=== PATIENT | male | born 1955 | race Caucasian/White ===

== ENCOUNTER 2021-03-26 18:20 | Inpatient (IN) | payer MEDICARE, MEDICAID ==
[~2021-03-26] VITALS: Ht 185.4 cm; Wt 82.3 kg
[~2021-03-26 18:20] MED LIST: ALDACTONE25 MG PO; ASPIRIN CHEWABL81 MG PO; CARVEDILOL25 MG PO; CARVEDILOL6.25 MG PO; CORDARONE 200M200 MG PO; COREG 12.5MG12.5 MG PO; COREG 25MG TAB25 MG PO; ELIQUIS5 MG PO; FLOMAX0.4 MG PO; IMDUR ER TAB 3030 MG PO; IMDUR ER TAB 6060 MG PO; ISOSORBIDE DINI30 MG PO; KEPPRA 500 MG500 MG PO; KEPPRA500 MG PO; LEVAQUIN750 MG PO; LIPITOR40 MG PO; LISINOPRIL2.5 MG PO; NEURONTIN600 MG PO; NITROGLYCERIN0.4 MG SL; PRAVACHOL20 MG PO; PROAIR HFA8.5 GM INH; PROSCAR5 MG PO; RANOLAZINE ER1000 MG PO; SYMBICORT 16010.2 GM INH; TYLENOL WITH C1 EACH PO; ZANTAC300 MG PO
[2021-03-27 07:09] LABS: HEMOGLOBIN 15.4 gm/dl (14.0-17.5); RED BLOOD COUNT 4.75 M/UL (4.20-5.50); WHITE BLOOD COUNT 8.8 K/UL (4.5-11.0)
[2021-03-27 07:30] LABS: BUN/CREATININE RATIO 13 (0-10)
[2021-03-27] MEDS ORDERED: PROTONIX 40 MG40 M1 PO (09:57)
[2021-03-28 03:39] LABS: HEMOGLOBIN 13.6 gm/dl (14.0-17.5); RED BLOOD COUNT 4.24 M/UL (4.20-5.50); WHITE BLOOD COUNT 9.6 K/UL (4.5-11.0)
[2021-03-28 04:00] LABS: BUN/CREATININE RATIO 18 (0-10)
--- NOTE | 2021-03-28 15:59 | NUR ---
PT 02 86 ON ROOM AIR
[2021-03-30 03:44] LABS: HEMOGLOBIN 12.8 gm/dl (14.0-17.5); RED BLOOD COUNT 3.99 M/UL (4.20-5.50)
[2021-03-30 03:50] LABS: WHITE BLOOD COUNT 6.5 K/UL (4.5-11.0)
[2021-03-30] MEDS ORDERED: AMIODARONE HCL200 MG PO (12:03)
[2021-03-30] MEDS ORDERED: ISOSORBIDE MONO30 MG PO (12:03)
[2021-03-30] MEDS ORDERED: CARVEDILOL3.125 MG PO (12:03)
[2021-03-30] MEDS ORDERED: CLOPIDOGREL75 MG PO (12:03)
[2021-03-30] MEDS ORDERED: LISINOPRIL2.5 MG PO (12:10)
--- NOTE | 2021-03-30 20:51 | NUR ---
1450 - CALLED DR. DO - INFORMED OF LOW BP AND HR - PT BP MEDS HELD THIS AM AND YESTERDAY - IMDUR, COREG, LISINOPRIL - PT GETTING LOADING DOSE OF AMIODORONE TID - PT DUE TO BE DISCHARGED NOW - DR DO AWARE AND OK WITH CONTINUING DISCHARGE PROCESS HOME WITH HR OF 48 - 52 AND SBP 88-90's. DR DO STATED TO CONTINUE AMIODORONE AND TO NOT HOLD ANY DOSES
== END 2021-03-30 17:00 | disposition home or self-care (01) | DRG 281 ==
LOC: PROG CARE 18:20
PROVIDERS: Internal Medicine; ADMIT Internal Medicine Infectious Disease
PROC: B24BZZZ Ultrasonography of Heart with Aorta (ICD-10-PCS; principal; 2021-03-28)
DX: I48.0 Paroxysmal atrial fibrillation (principal); I21.4 Non-ST elevation (NSTEMI) myocardial infarction; J98.11 Atelectasis; I50.22 Chronic systolic (congestive) heart failure; I69.354 Hemiplegia and hemiparesis following cerebral infarction affecting left non-dominant side; Z20.822 Contact with and (suspected) exposure to COVID-19; K59.00 Constipation, unspecified; I25.5 Ischemic cardiomyopathy; I48.19 Other persistent atrial fibrillation; I11.0 Hypertensive heart disease with heart failure; N40.0 Benign prostatic hyperplasia without lower urinary tract symptoms; E78.5 Hyperlipidemia, unspecified; F17.210 Nicotine dependence, cigarettes, uncomplicated; I25.10 Atherosclerotic heart disease of native coronary artery without angina pectoris; I47.2 Ventricular tachycardia; N28.1 Cyst of kidney, acquired; I95.2 Hypotension due to drugs; T50.995A Adverse effect of other drugs, medicaments and biological substances, initial encounter; Z95.1 Presence of aortocoronary bypass graft; Z79.82 Long term (current) use of aspirin; Z71.6 Tobacco abuse counseling; Z87.442 Personal history of urinary calculi; Z82.49 Family history of ischemic heart disease and other diseases of the circulatory system; Z83.3 Family history of diabetes mellitus; Z82.5 Family history of asthma and other chronic lower respiratory diseases; I25.2 Old myocardial infarction; Z74.01 Bed confinement status
CPT/HCPCS: ECHO; 36415; 71045; 80053; 82550; 82553; 83735; 83880; 84439; 84443; 84484; 85025; 86140; 93005; 93306; 94640; 94760; 97162; J0295; J0456; J0696; J2270; J7030

== ENCOUNTER → 2021-06-20 | Outpatient (CLI) | payer MEDICARE ==
[~2021-06-20] MED LIST changes: +AMIODARONE HCL200 MG PO; +CARVEDILOL3.125 MG PO; +CLOPIDOGREL75 MG PO; +ISOSORBIDE MONO30 MG PO; +PROTONIX 40 MG40 M1 PO
== END ==
LOC: HEART 5 09:41
DX: R06.02 Shortness of breath (principal); Z79.899 Other long term (current) drug therapy; R94.2 Abnormal results of pulmonary function studies
CPT/HCPCS: 94060; 94729

== ENCOUNTER 2021-06-28 09:01 | Inpatient (IN) | payer MEDICARE, MEDICAID ==
[~2021-06-28] VITALS: Ht 188 cm; Wt 83.9 kg
[~2021-06-28 09:01] MED LIST changes: -NITROGLYCERIN0.4 MG SL
[2021-06-28] MEDS ORDERED: NITROGLYCERIN0.4 MG SL (09:18)
[2021-06-28 09:42] LABS: HEMOGLOBIN 11.8 gm/dl (14.0-17.5); RED BLOOD COUNT 3.64 M/UL (4.20-5.50); WHITE BLOOD COUNT 10.9 K/UL (4.5-11.0)
[2021-06-28] MEDS ORDERED: ISOSORBIDE MONO60 MG PO (18:31)
[2021-06-28] MEDS ORDERED: FLOMAX 0.4 MG0.4 MG PO (18:32)
[2021-06-28] MEDS ORDERED: TRAZODONE HCL100 MG PO (18:34)
[2021-06-28] MEDS ORDERED: PROAIR HFA8.5 GM INH (18:38)
[2021-06-28] MEDS ORDERED: MEN'S 50 PLUS1 EACH PO (18:39)
[2021-06-28] MEDS ORDERED: RANOLAZINE ER1000 MG PO (18:45)
[2021-06-29 07:21] LABS: HEMOGLOBIN 12.5 gm/dl (14.0-17.5); RED BLOOD COUNT 3.82 M/UL (4.20-5.50)
[2021-06-29 07:28] LABS: WHITE BLOOD COUNT 6.9 K/UL (4.5-11.0)
[2021-06-29 07:48] LABS: BUN/CREATININE RATIO 13 (0-10)
[2021-06-30 06:06] LABS: RED BLOOD COUNT 3.45 M/UL (4.20-5.50); WHITE BLOOD COUNT 7.3 K/UL (4.5-11.0)
[2021-06-30 06:34] LABS: BUN/CREATININE RATIO 13 (0-10)
[2021-07-01 06:15] LABS: HEMOGLOBIN 11.1 gm/dl (14.0-17.5); RED BLOOD COUNT 3.38 M/UL (4.20-5.50); WHITE BLOOD COUNT 5.9 K/UL (4.5-11.0)
[2021-07-01 06:53] LABS: BUN/CREATININE RATIO 11 (0-10)
[2021-07-01] MEDS ORDERED: AMOX TR-K CLV1 EAC4 PO (10:06)
[2021-07-01] MEDS ORDERED: DOXYCYCLINE HY100 MG PO (10:06)
--- NOTE | 2021-07-02 11:00 | NUR ---
SPOKE WITH EMILIANO AND CIELO, THEY SAID THEY DO LIVE WITH [employer] AND THAT THEY WOULD BE THERE TO HELP HIM WITH ANYTHING HE NEEDED. I WENT OVER THE DC MEDS AND INSTRUCTIONS WITH BOTH EMILIANO AND [employer], HE HAS HOME O2 TANK WITH HIM AND IT IS AT 1900ML, HIS DRIVE IS APPROXIMATELY [address] HOSPITAL. I SPOKE WITH [employer] SHE SAID IT IS OK TO GET HIM A TAXI LONG HE HAS HELP AT HOME.
--- NOTE | 2021-07-02 11:19 | NUR ---
TAXI HAS ARRIVED AND PATIENT STATED HE HAS TO USE THE BATHROOM, WE PLACED HIM ON THE BEDSIDE FOR 15 MINUTES AND HE REFUSED TO GET OFF THE TOILET.
== END 2021-07-02 11:30 | disposition home or self-care (01) | DRG 64 ==
LOC: ER1 09:01 → MED SURG 4 19:00
PROVIDERS: Physician Assistant; ADMIT Internal Medicine
PROC: 3E03329 Introduction of Other Anti-infective into Peripheral Vein, Percutaneous Approach (ICD-10-PCS; principal; 2021-06-28)
PROC: B24BZZZ Ultrasonography of Heart with Aorta (ICD-10-PCS; 2021-06-29)
DX: I63.9 Cerebral infarction, unspecified (principal); J18.9 Pneumonia, unspecified organism; J96.11 Chronic respiratory failure with hypoxia; I48.20 Chronic atrial fibrillation, unspecified; I50.22 Chronic systolic (congestive) heart failure; I69.352 Hemiplegia and hemiparesis following cerebral infarction affecting left dominant side; Z20.822 Contact with and (suspected) exposure to COVID-19; Z66 Do not resuscitate; I25.10 Atherosclerotic heart disease of native coronary artery without angina pectoris; I11.0 Hypertensive heart disease with heart failure; N40.0 Benign prostatic hyperplasia without lower urinary tract symptoms; G47.33 Obstructive sleep apnea (adult) (pediatric); E78.5 Hyperlipidemia, unspecified; D53.9 Nutritional anemia, unspecified; I25.5 Ischemic cardiomyopathy; E87.6 Hypokalemia; I48.0 Paroxysmal atrial fibrillation; K21.9 Gastro-esophageal reflux disease without esophagitis; F41.9 Anxiety disorder, unspecified; F17.210 Nicotine dependence, cigarettes, uncomplicated; E05.80 Other thyrotoxicosis without thyrotoxic crisis or storm; J44.9 Chronic obstructive pulmonary disease, unspecified; I65.21 Occlusion and stenosis of right carotid artery; R53.83 Other fatigue; Z99.81 Dependence on supplemental oxygen; Z95.1 Presence of aortocoronary bypass graft; Z79.01 Long term (current) use of anticoagulants; Z95.810 Presence of automatic (implantable) cardiac defibrillator; Z82.49 Family history of ischemic heart disease and other diseases of the circulatory system; Z83.3 Family history of diabetes mellitus; Z83.6 Family history of other diseases of the respiratory system; Z74.01 Bed confinement status; I25.2 Old myocardial infarction; Z79.82 Long term (current) use of aspirin; Z79.899 Other long term (current) drug therapy
CPT/HCPCS: ECHO; 36415; 70450; 70496; 70498; 71045; 76700; 80053; 81001; 82550; 82553; 83735; 84439; 84443; 84484; 85025; 85027; 87086; 93005; 93306; 94640; 94664; 94760; 96374; 97161; 97166; 99285; J0692; J0696; J2405; J7030; Q9967; U0002